=== PATIENT | male | born 1950 | race Caucasian/White ===

== ENCOUNTER → 2016-08-12 | Outpatient (CLI) | payer BC ==
[~2016-08-12] MED LIST: ACETTAB19 PO; ASPCH81X PO; LOSA1TAB PO; OMEG10007 PO; SIMV20TA2 PO
== END | disposition home or self-care (01) ==
LOC: C.LAB1850 07:58
PROVIDERS: ATTEND Internal Medicine
DX: Z00.00 Encounter for general adult medical examination without abnormal findings (principal); E03.9 Hypothyroidism, unspecified; Z11.59 Encounter for screening for other viral diseases

== ENCOUNTER → 2016-12-20 | Outpatient (CLI) | payer OTHER, MEDICARE ==
[2016-12-20 10:23] LABS: ESTIMATED AVERAGE GLUCOSE 126 mg/dl; HA1C FLAG Normal (Normal)
[2016-12-20 10:35] LABS: BLOOD UREA NITROGEN 21 mg/dl (7-18); BUN/CREATININE RATIO 21.4 (10-20); CALCIUM 8.8 mg/dl (8.5-10.1); CARBON DIOXIDE 25 mmol/L (21-32); CHLORIDE 107 mmol/L (98-107); CHOLESTEROL 146 mg/dl (0-200); CHOLESTEROL/HDL RATIO 2.9; GLUCOSE 114 mg/dl (70-99); HDL CHOLESTEROL 51 mg/dl; LDL CHOLESTEROL CALCULATED 74 mg/dl; POTASSIUM 4.3 mmol/L (3.5-5.1); PROSTATE SPECIFIC ANTIGEN 0.498 ng/ml (0.000-4.000); SODIUM 141 mmol/L (136-145); TRIGLYCERIDES 104 mg/dl (0-150); VERY LOW DENSITY LIPOPROT CALC 21 mg/dl
--- NOTE | 2016-12-24 08:52 | CODING QUERY MEDICAL NECESSITY ---
SUPPORTING DIAGNOSIS NEEDED Dr. Bridges, A supporting diagnosis is required for the test/procedure performed on this patient in order for us to be reimbursed by the patient's insurance. Please provide a supporting diagnosis for the following test/procedure listed below next to the test name along with your signature. *If there is no additional diagnosis for this patient that would support the following test/procedure please document that below next to the test/procedure. Test(s)/Procedure(s) that require a supporting diagnosis: * [id number] GLYCATED HEMOGLOBIN DIAGNOSIS: DATE OF SERVICE: 12/20/16 Provider Signature: Date: Thank you Nelson Allison [facility] Information Management Once completed, please kindly fax back to [phone] For questions please call [phone]
== END | disposition home or self-care (01) ==
LOC: C.LAB1850 07:59
PROVIDERS: ATTEND Internal Medicine
DX: R73.03 Prediabetes (principal); E03.9 Hypothyroidism, unspecified; E78.5 Hyperlipidemia, unspecified; Z12.5 Encounter for screening for malignant neoplasm of prostate; Z13.1 Encounter for screening for diabetes mellitus

== ENCOUNTER → 2017-04-13 | Outpatient (CLI) | payer OTHER, MEDICARE ==
[2017-04-13 10:19] LABS: BLOOD UREA NITROGEN 16 mg/dl (7-18); BUN/CREATININE RATIO 14.9 (10-20); CALCIUM 9.3 mg/dl (8.5-10.1); CARBON DIOXIDE 26 mmol/L (21-32); CHLORIDE 105 mmol/L (98-107); GLUCOSE 111 mg/dl (70-99); SODIUM 139 mmol/L (136-145)
== END | disposition home or self-care (01) ==
LOC: C.LAB1850 07:29
PROVIDERS: ATTEND Internal Medicine
DX: R73.03 Prediabetes (principal)

== ENCOUNTER → 2017-07-28 | Outpatient (CLI) | payer OTHER, MEDICARE ==
[2017-07-28 09:47] LABS: ALT/SGPT 22 U/L (12-78); AST/SGOT 12 U/L (15-37); BLOOD UREA NITROGEN 19 mg/dl (7-18); CALCIUM 8.9 mg/dl (8.5-10.1); CARBON DIOXIDE 27 mmol/L (21-32); CREATININE 1.14 mg/dl (0.60-1.40); GLUCOSE 108 mg/dl (70-99); POTASSIUM 4.1 mmol/L (3.5-5.1); SODIUM 136 mmol/L (136-145)
[2017-07-28 09:48] LABS: HEMOGLOBIN A1C 5.8 % (4.5-5.6)
[2017-07-28 09:58] LABS: CHOLESTEROL 171 mg/dl (0-200); LDL CHOLESTEROL CALCULATED 100 mg/dl
== END | disposition home or self-care (01) ==
LOC: C.LAB1850 07:46
PROVIDERS: ATTEND Internal Medicine
DX: E78.5 Hyperlipidemia, unspecified (principal); R73.03 Prediabetes; E03.9 Hypothyroidism, unspecified

== ENCOUNTER 2019-01-16 05:16 | Inpatient (IN) ==
--- NOTE | 2018-12-15 11:31 | Anesthesiology Consultation ---
Date of Service December 15, 2018 Assessment & Plan (1) Encounter for pre-operative examination: - No previous anesthesia records re: intubations Chart Review Chart Review: Acceptable Risk for Surgery and Patient seen in Pre Admission Testing Consults Requested medical (Dr. Bridges (12/18 @ 8:30)) Patient was seen by PCPs office on 12/18 for preoperative evaluation. Per note from this visit. "Estimated risk probability for perioperative AMLA is 0.16% which is low risk. From a general medical standpoint, patient is cleared for surgery." Teaching & Discussion Pre-Anesthesia Teaching/Discussion Notes: Instructed NPO after midnight before surgery, except medications with 15 cc of water. Medication instructions provided according to the PAT guidelines. History Surgery Operation Date: 01/16/19 09:00 Proposed Procedures p Left Total Knee Arthroplasty - Jaydon Victoria DO Height/Weight Height: 6 ft Weight: 139.8 kg Allergies Allergy/AdvReac Type Severity Reaction Status Date / Time No Known Drug Allergies Allergy Unknown . Verified 12/18/18 08:33 Medications Home Medications Medication Instructions Recorded Confirmed Last Taken aspirin [Aspirin Low Dose] 81 mg PO QAM 12/08/18 12/18/18 Unknown asxeamv-lfdfndftrfruf-xlsgyhkp 2 tab PO Q6H PRN 12/08/18 12/18/18 Unknown [Excedrin Extra Strength] fluticasone propionate 1 spray INTRANASAL QAM 12/08/18 12/18/18 Unknown levothyroxine 50 mcg PO QAM 12/08/18 12/18/18 Unknown loratadine 10 mg PO QAM 12/08/18 12/18/18 Unknown losartan 25 mg PO QAM 12/08/18 12/18/18 Unknown ranitidine HCl 150 mg PO HS 12/08/18 12/18/18 Unknown simvastatin 20 mg PO PM 12/08/18 12/18/18 Unknown diclofenac 1 % topical gel TOPICAL .APPLY SPARINGLY TO A gm 12/18/18 12/18/18 Unknown fluocinonide 0.05 % topical cream TOPICAL .APPLY SPARINGLY TO A #1 gm 12/18/18 12/18/18 Unknown hydrochlorothiazide 25 mg tablet 25 mg PO QAM #90 tab 12/18/18 12/18/18 Unknown Past Medical History Medical History Diverticulosis of colon (Acute) History of esophageal reflux (Resolved) Hyperlipidemia (Acute) Hypothyroidism (Acute) Pre-diabetes (Acute) Diplopia left eye Environmental allergies Osteoarthritis Exercise / Class Metabolic Activity II 4-5 Yardwork/Stairs/Walk up hill (Able to climb FOS. Denies CP or SOB. ) Past Family History Family History Mother No problems noted. Father No problems noted. Past Surgical History Surgical History History of mandibular surgery History of total right knee replacement Hx of thumb surgery LEFT Past Anesthesia History No Hx of Anesthesia Complications and No Family Hx of Anesthesia Complications History of PONV No Hx of Motion Sickness and History of PONV (No vomiting, has had mild nausea after surgery. ) Social History Smoking Status: Never smoker Do You Dip or Chew Tobacco: No Hx Alcohol Use: Yes Alcohol type: beer and wine alcohol intake frequency: holidays/special occasions only Hx Substance Use: No Review of Systems Patient denies chest pain, shortness of breath, dyspnea on exertion, cough, wheezing, palpitations. +Joint Pain (Knees, Back) +Acid Reflux (controlled with current medication) Physical Exam Vital Signs BP: 128/83 P: 72 R: 16 T: 97.7 SPO2: 95% on RA Constitutional + obese ENMT Mouth: + dental restorations Thyromental Distance: > or= 3.5 Finger Breadths (3.5) Mallampati Class: I Neck normal visual inspection and trachea midline; neck extension not limited Respiratory normal respiratory effort Auscultation: lungs clear to auscultation bilaterally Cardiovascular Rate/Rhythm: regular rate and regular rhythm Heart Sounds: no murmur Vessels: no carotid bruit Neurologic moves all extremities Psychiatric Orientation: alert and oriented x 3 Testing Laboratory Results 12/15/18 12:10 12/15/18 12:10 12/15/18 12/15/18 12/15/18 12:10 12:10 12:10 PT 10.2 INR 1.0 APTT 27.9 Hemoglobin A1c Urine Color Yellow Urine Appearance Clear Urine pH 7.0 Ur Specific [place] 1.013 Urine Protein Negative Urine Glucose (UA) Negative Urine Ketones Negative Urine Nitrite Negative Ur Leukocyte Esterase Negative Blood Type O Positive Antibody Screen NEGATIVE 12/15/18 12:10 PT INR APTT Hemoglobin A1c 6.1 H Urine Color Urine Appearance Urine pH Ur Specific [place] Urine Protein Urine Glucose (UA) Urine Ketones Urine Nitrite Ur Leukocyte Esterase Blood Type Antibody Screen 12/15/18 12:10 Urine Culture - Final Urine,Clean Catch No growth - less than 1,000 colonies/mL. Electrocardiogram Date: 12/15/18 Findings: + NSR @ (73) and + no change from (11/22/17) Normal sinus rhythm with sinus arrhythmia Chest X-Ray Date: 12/15/18 Findings: + NAD FINDINGS: PA and lateral chest radiographs are compared to study dated 11/22/2017. The cardiomediastinal silhouette is unremarkable noting atheroscle rotic calcification of the thoracic aorta. Chronic interstitial thickening is similar to previous. There is mild bibasilar scarring/atelectasis. No airspace consolidation or pleural effusion is identified. There is no pneumothorax. The bony thorax appears intact. Degenerative change is noted in the thoracic spine. IMPRESSION: No active disease in the chest.
--- NOTE | 2018-12-15 11:35 | PAT Medication Instructions ---
Medication Instructions Date of Service December 15, 2018 Home Medications aspirin [Aspirin Low Dose] 81 mg PO QAM toiegqi-gnmofstnsrqaw-ozalfizs [Excedrin Extra Strength] 2 tab PO Q6H NEEDED fluticasone propionate 1 spray INTRANASAL QAM hydrochlorothiazide 25 mg PO QAM levothyroxine 50 mcg PO QAM loratadine 10 mg PO QAM losartan 25 mg PO QAM ranitidine HCl 150 mg PO HS simvastatin 20 mg PO PM ASK your surgeon for instructions aspirin [Aspirin Low Dose] 81 mg PO QAM eocwiyy-hcuspszebkvuk-gmhzxraz [Excedrin Extra Strength] 2 tab PO Q6H NEEDED DO NOT take the morning of surgery fluticasone propionate 1 spray INTRANASAL QAM hydrochlorothiazide 25 mg PO QAM loratadine 10 mg PO QAM losartan 25 mg PO QAM Take morning of surgery With a small sip of water, OTHERWISE NOTHING TO EAT OR DRINK AFTER MIDNIGHT: levothyroxine 50 mcg PO QAM Take evening before surgery ranitidine HCl 150 mg PO HS simvastatin 20 mg PO PM Other Notes If you have any questions please call us at [phone] or [phone] or [phone] or [phone]
--- NOTE | 2018-12-15 12:37 | XRay Report ---
TWO VIEW CHEST CLINICAL HISTORY: Preoperative examination. FINDINGS: PA and lateral chest radiographs are compared to study dated 11/22/2017. The cardiomediastin al silhouette is unremarkable noting atherosclerotic calcification of the thoracic aorta. Chronic int erstitial thickening is similar to previous. There is mild bibasilar scarring/atelectasis. No airspac e consolidation or pleural effusion is identified. There is no pneumothorax. The bony thorax appears intact. Degenerative change is noted in the thoracic spine. IMPRESSION: No active disease in the chest. Electronically signed by: Mayur Mac M.D. 12/15/2018 12:35 PM
[2018-12-15 14:01] LABS: Basophils # (auto) 0.02 K/uL (0-0.2); Basophils % (auto) 0.3 %; Eosinophils # (auto) 0.26 K/uL (0-0.5); Eosinophils % (auto) 3.9 %; Hematocrit (blood only) 42.3 % (42-52); Hemoglobin 14.5 g/dL (14.0-18.0); Lymphocytes % (auto) 33.2 %; Mean Corpuscular Hgb Conc 34.3 g/dL (32-36); Mean Corpuscular Volume 86.3 fL (80-100); Mean Platelet Volume 10.7 fL (7.4-10.4); Monocytes # (auto) 0.58 K/uL (0.11-0.59); Monocytes % (auto) 8.8 %; Neutrophils # (auto) 3.56 K/uL (1.4-6.5); Neutrophils % (auto) 53.8 %; Platelet Count 226 K/uL (130-400); RDW Standard Deviation 44.1 fL (36.4-46.3); White Blood Count 6.62 K/uL (4.8-10.8)
[2018-12-15 14:05] LABS: Partial Thromboplastin Time 27.9 Seconds (21.0-31.0); Prothrombin Time 10.2 Seconds (9.0-12.0)
[2018-12-15 14:08] LABS: Albumin Level 3.7 gm/dl (3.4-5.0); BUN Creatinine Ratio 15.4 (10-20); Calcium 9.6 mg/dl (8.5-10.1); Creatinine Clr Calc Pharmacy 90.4 ml/min; Est GFR (African American) 75.9; Est GFR (Non-African American) 65.5; Potassium 4.1 mmol/L (3.5-5.1)
[2018-12-15 14:16] LABS: Estimated Average Glucose 128 mg/dl; Hemoglobin A1C 6.1 % (4.5-5.6)
[2018-12-15 14:21] LABS: Appearance Urine Clear (Clear); Bilirubin Urine Negative (Negative); Blood Urine Negative (Negative); Color Urine Yellow; Glucose Urine UA Negative (Negative); Ketones Urine Negative (Negative); Leukocyte Esterase Urine Negative (Negative); Nitrite Urine Negative (Negative); Protein Urine Negative (Negative); Specific Gravity Urine 1.013 (1.000-1.030); Urobilinogen Urine Negative (Negative)
--- NOTE | 2018-12-18 07:46 | History & Physical Report ---
Date of Service December 18, 2018 Date of Surgery: 01/16/19 Assessment & Plan (1) Osteoarthritis of left knee: Risks and benefits of procedure discussed in detail today, patient would like to proceed with a left total knee replacement at [facility] as scheduled. will obtain medical clearance prior to surgery as well as obtain PATs at [facility]. Will place on ASA 81mg po bid x 1 month post op, f/u 2 weeks post op for routine post-operative care and x-ray, sooner if having any problems. will make arrangements for HHPT at the time of discharge. At this point in time, has failed conservative measures and would like to proceed with surgical intervention. History of Present Illness Chief Complaint: left knee pain Primary Care Provider: Zach Bridges MD Mr Merino is a 68 year old male who complains of left knee pain, presents for pre-op eval prior to a left total knee replacement at [facility] on 01/16/19. he states the pain is chronic and no known injuries, pain is described as aching and dull, currently 3/10 worse is 7/10. he has tried PO NSAIDs including IBU and Aleve, has undergone prior cortisone injections as well as visco with minimal relief. pain is now affecting his activities of daily living including walking, standing and using stairs. he admits to decreased range of motions, stiffness, denies instability, but does have intermittent swelling. at this point in time has failed conservative measures and would like to proceed with a left total knee replacement. Allergies Allergy/AdvReac Type Severity Reaction Status Date / Time No Known Drug Allergies Allergy Unknown . Verified 12/08/18 15:07 Home Medications Home Medications Medication Instructions Recorded Confirmed Type aspirin [Aspirin Low Dose] 81 mg PO QAM 12/08/18 12/08/18 History wtjnzgk-qfxsfduavkxxd-tutswjxv 2 tab PO Q6H PRN 12/08/18 12/08/18 History [Excedrin Extra Strength] fluticasone propionate 1 spray INTRANASAL QAM 12/08/18 12/08/18 History hydrochlorothiazide 25 mg PO QAM 12/08/18 12/08/18 History levothyroxine 50 mcg PO QAM 12/08/18 12/08/18 History loratadine 10 mg PO QAM 12/08/18 12/08/18 History losartan 25 mg PO QAM 12/08/18 12/08/18 History ranitidine HCl 150 mg PO HS 12/08/18 12/08/18 History simvastatin 20 mg PO PM 12/08/18 12/08/18 History Past Med/Surg History Medical History Diverticulosis of colon (Acute) History of esophageal reflux (Resolved) Hyperlipidemia (Acute) Hypothyroidism (Acute) Pre-diabetes (Acute) Diplopia left eye Environmental allergies Osteoarthritis Surgical History History of mandibular surgery History of total right knee replacement Hx of thumb surgery LEFT Family History Mother No problems noted. Father No problems noted. Social History Preferred Language: Polish Communication Ability: Effective Beliefs That Will Affect Care: None Current Living Situation: Spouse Feels Safe at Home: Yes Safety Concerns: Feels Safe At This Time Smoking Status: Never smoker Do You Dip or Chew Tobacco: No Second Hand Exposure: Yes ( CHILD, CURRENTLY NO) Hx Alcohol Use: Yes Alcohol type: beer and wine Hx Substance Use: No Review of Systems Review of Systems: All systems reviewed & are unremarkable except as noted in HPI & below Constitutional: no fever, no chills and no sweats Respiratory: no cough and no dyspnea Cardiovascular: no chest pain, no dyspnea and no orthopnea Gastrointestinal: no abdominal pain, no nausea and no vomiting Musculoskeletal: as per Subjective / HPI Physical Exam Physical Exam: Ht: 6ft Wt: 139.8kg BP: 128/72 Pulse: 84 Constitutional: WD/WN, vitals as above no acute distress Respiratory: normal respiratory effort, lungs clear to auscultation no respiratory distress and no labored breathing Cardiovascular: RRR, no murmur, no edema Gastrointestinal (Abdomen): normal bowel sounds, soft, nontender, no hepatosplenomegaly Musculoskeletal: Left Knee Physical Exam ambulates with a limp, there is no erythema, warmth, ecchymosis or atrophy noted, +1 effusion, greatest tenderness over the medial joint line and anterior knee joint. negative patellar apprehension , mild crepitation with motion, rigo's negative, posterior drawer negative. positive mcmurrays medially, negative anterior drawer, knee stable with valgus/varus stress. no extensor lag. pain with active range of motion, AROM 0/5/110, Passive ROM 0/5/115. No pain with active/passive ROM of ankle. Lower Extremity Strength normal. Lower Extremity Neuro-vascular is normal Results & Data Diagnostic Findings Left Knee X-ray 10/02/18 confirms advanced degenerative changes to the left knee with varus alignment, narrowing greatest medial compartment and patellofemoral joint, findings consistent with joint space narrowing, osteophyte formation and subchondral sclerosis. no acute bony pathology noted.
[2019-01-16] MEDS ORDERED: ROPIVACAINE 0.5% HCL/PF 150 MG, BUPIVACAINE 0.5% MPF 30 ML, EPINEPHrine 30MG/30ML (OR U... INSTIL SCH (06:00)
[2019-01-16] MEDS ORDERED: dexAMETHasone 4 MG TAB PO SCH (06:00)
[2019-01-16] MEDS ORDERED: LR 500ML BOLUS, THEN 15ML/HR IV SCH (06:00)
[2019-01-16] MEDS ORDERED: GABAPENTIN 900 MG DOSE PO SCH (06:00)
[2019-01-16] MEDS ORDERED: TRANEXAMIC ACID 1,000 MG x 1 **For Topical Use TOP SCH (06:00)
[2019-01-16] MEDS ORDERED: ACETAMINOPHEN 500 MG TAB PO SCH (06:00)
[2019-01-16] MEDS ORDERED: TRANEXAMIC ACID 1,000 MG **IV Pre-op IV SCH (06:00)
[2019-01-16] MEDS ORDERED: FAMOTIDINE 20 MG TAB PO SCH (06:00)
[2019-01-16] MEDS ORDERED: CeleBREX 200 MG CAP PO SCH (06:00)
[2019-01-16] MEDS ORDERED: CEFAZOLIN 2000MG 2,000 MG/15 ML SYR IV SCH (06:00)
[2019-01-16] MEDS ORDERED: LR 15ML/HR IV SCH (06:00)
[2019-01-16] MEDS ORDERED: CEFAZOLIN 3000MG 72.5 ML IV SCH (06:00)
[2019-01-16] MEDS ORDERED: LR 60ML/HR IV SCH (06:00)
[2019-01-16] MEDS ORDERED: ROPIVACAINE 0.5% 5 MG/ML 30 ML VIAL ONE (06:26)
[2019-01-16] MEDS ORDERED: BUPIVACAINE 0.5 % 5 MG/1 ML PF 10ML VIAL ONE (06:26)
[2019-01-16] MEDS ORDERED: TRANEXAMIC ACID 1,000 MG **IV Intra-op IV SCH (06:30)
[2019-01-16] MEDS ORDERED: fentaNYL citrate 100 MCG/2 ML VIAL ONE (06:35)
[2019-01-16] MEDS ORDERED: PROPOFOL IV EMULSION 10 MG/ML 20 ML VIAL IV ONE ×2 (06:35→08:33)
[2019-01-16] MEDS ORDERED: LIDOCAINE HCL 2% 2 ML VIAL/AMP(20MG/ML) INFIL ONE (06:35)
[2019-01-16] MEDS ORDERED: MIDAZOLAM HCL 1 MG/ML 2ML VIAL ONE ×2 (06:35→07:47)
[2019-01-16] MEDS ORDERED: BACITRACIN INJ 50,000 UNIT VIAL ONE (06:58)
[2019-01-16] MEDS ORDERED: ORTHO JOINT ANESTHETIC ONE (06:58)
--- NOTE | 2019-01-16 06:59 | History & Physical Bridge Note ---
Date of Service January 16, 2019 History & Physical Bridge Note I have examined the patient, reviewed the History & Physical and in the interval since the performance of the History & Physical I have noted the following changes of clinical significance: no changes noted
[2019-01-16] MEDS ORDERED: ePHEDrine sulfate 50 MG/ML AMP IV PRN (07:57)
[2019-01-16] MEDS ORDERED: ATROPINE SULFATE 0.1 MG/ML 10ML SYR IV PRN (07:57)
[2019-01-16] MEDS ORDERED: fentaNYL citrate 100 MCG/2 ML VIAL IV PRN (07:57)
[2019-01-16] MEDS ORDERED: ONDANSETRON INJ 2 MG/ML 2 ML VIAL IV PRN ×2 (07:57→10:30)
--- NOTE | 2019-01-16 08:28 | Operative Report ---
Post Operative Report Pre & Post Diagnosis Operation Date: 01/16/19 07:15 Pre-Op Diagnosis: Left Knee Osteoarthritis Post-Op Diagnosis: Left Knee Osteoarthritis Procedure Operation Date: 01/16/19 07:15 Actual Procedures p Left Total Knee Arthroplasty(Left) utilizing [employer] journey 2 patient matched total knee arthroplasty size 8 femur 6 tibia with a 20 mm stem by 111 polyethylene oval patella- Jaydon Victoria DO Surgeon Jaydon Victoria DO Scientific Diver Eran ROQUE Estimated Blood Loss 5 Findings Consistent with Post-Op Diagnosis Patient resents with severe end-stage DJD varus alignment left knee no response to conservative management times surgery patient noted evidence of subchondral sclerosis bone loss of the medial tibial large osteophytes marginal osteophytes of the femur as well varus alignment with a flexion contracture of 10 degrees patient is failed attempted conservative management presents today for a left total knee arthroplasty Specimens Bone cartilage Drains Medium bore Hemovac Complications none Disposition Accompanied Patient To Recovery: No Disposition: Recovery Room Indications Patient presents as a 68-year-old male with severe end-stage DJD varus alignment left knee presents for left total knee arthroplasty after failing attempts at conservative management the above findings were noted patient is failed attempts at conservative management including bracing anti-inflammatories relative rest activity modification corticosteroid injection Visco supplementation. Description of Procedure After proper prepping and draping of the left lower extremity anterior midline incision was made over the region of the extensor extensor mechanism after meticulous hemostasis was obtained and maintained in subcutaneous tissues a medial parapatellar incision was made The patella was subluxed lateralward the medial lateral gutter were cleaned from any hypertrophic synovitis and scar tissue of the distal femoral block was placed and the distal femoral osteotomy cut was made subsequently the chamfers anterior and posterior osteotomy cuts were made utilizing the 4-in-1 block the tibia was subsequently subluxed anteriorward medial and ateral meniscal remnants were excised in their entirety remnants of the anterior and posterior cruciate ligaments were excised in their entirety excellent exposure of the proximal tibia was obtained the tibial osteotomy guide was placed on the proximal tibial osteotomy cut was made once again the knee was irrigated with copious amounts of sterile saline solution the patella was subsequently everted lateralward thickened scar tissue around the patella was removed the patella was subsequently cut utilizing a freehand technique and was drilled prepared for final preparation and placement of patella socially flexion-extension gaps were checked and the equal and symmetric trials were placed to the appropriate femoral and tibial trials with poly-spacer being placed for equal flexion and extension gaps and full range of motion including extension to 0 and flexion to 140 the trial components after having been taken to recovery range of motion was subsequently removed meticulous hemostasis was obtained and maintained subsequently a knee block injection of joint cocktail including ropivacaine 0.5% 150 mg. Bupivacaine 0.5% epinephrine 1-200,030 mL's toradol 30 mg dexamethasone 4 mg ketamine 10 mg clonidine 100 micrograms normal saline solution 30 mg was infiltrated into the soft tissues of the posterior knee medial lateral gutters and periosteal synovium special attention was paid to protect neurovascular structures at all times subsequently trial components having been removed the knee was irrigated with sterile saline solution. debris was removed the proximal tibia was subsequently prepared and was made ready for the placement of the tibial component tibial component was also cemented and tamped into position the femoral component was subsequently placed and cemented in the position the patellar component was subsequently cemented in position because hemostasis once again obtained and maintained wound having been thoroughly irrigated with debridement and debridement lavage was performed as well as a medial parapatellar incision closed with #1 Vicryl in interrupted fashion subcutaneous was closed with #2 Vicryl skin was closed with skin clips. PA-C was necessary for prepping and drapping as well as wound closure of deep fascia Sub cutaneous tissue and skin and was necessary for the case. A sterile compressive dressing was placed patient was taken to recovery in stable condition of report dictated by Julien I attest to the content of the Intraoperative Record and any orders documented therein. Any exceptions are noted below. I attest to the content of the Intraoperative Record and any orders documented therein. Any exceptions are noted below.
--- NOTE | 2019-01-16 09:46 | Anesthesiology Progress Note ---
Date of Service January 16, 2019 Anesthesia Post Procedure Vital Signs Vital Signs: Temp Pulse Pulse Resp BP Pulse Ox 01/16/19 09:35 82 15 126/80 94 01/16/19 09:25 82 15 129/78 100 01/16/19 09:16 36.5 C 84 16 129/75 99 01/16/19 06:02 37.2 C 84 20 129/84 94 Pain Intensity Back: Pain Intensity: 1 Left Knee: Pain Intensity: 0 Transfer of Care Handoff Completed per policy Notes Mental Status: alert / awake / arousable Patient Amnestic to Procedure: Yes Nausea / Vomiting: adequately controlled Pain: adequately controlled Airway Patency, RR, SpO2: stable & adequate BP & HR: stable & adequate Hydration State: stable & adequate Neuraxial Anesthesia: was administered and sensory block is resolving Anesthetic Complications: no major complications apparent and Pt Satisfied with anesthetic care
--- NOTE | 2019-01-16 10:02 | XRay Report ---
LEFT KNEE 2 VIEWS History: Left total knee arthroplasty. Degenerative arthritis. Postop. FINDINGS: The patient is status post a left total knee arthroplasty. The hardware is intact. No fract ure or dislocation. Surgical drains are in place. IMPRESSION: Left total knee arthroplasty. No evidence for hardware complication. Electronically signed by: Jem Lawrence M.D. 01/16/2019 10:01 AM
[2019-01-16] MEDS ORDERED: NALOXONE HCL 0.4 MG/1 ML VIAL/CARP IV PRN (10:30)
[2019-01-16] MEDS ORDERED: HYDROmorphone INJ 1 MG/ML SYRINGE IV PRN (10:30)
[2019-01-16] MEDS ORDERED: METOCLOPRAMIDE HCL INJ 5 MG/ML 2 ML VIAL IV PRN (10:30)
[2019-01-16] MEDS ORDERED: BISACODYL 10 MG SUPP PR PRN (10:30)
[2019-01-16] MEDS ORDERED: ALUMINUM/MAGNESIUM SUSP 30 ML UDC PO PRN (10:30)
[2019-01-16] MEDS ORDERED: MAGNESIUM HYDROXIDE SUSP 30 ML UDC PO PRN (10:30)
[2019-01-16] MEDS: SODIUM CHLORIDE 0.9% 1000ML 1,000 ML IV SCH ×2 (10:55→20:25)
[2019-01-16] MEDS: KETOROLAC TROMETHAMINE 15 MG/ML VIAL IV SCH ×3 (10:56→22:16)
[2019-01-16] MEDS: ACETAMINOPHEN 500 MG TAB PO SCH ×2 (14:07→21:28)
[2019-01-16] MEDS: CEFAZOLIN 2000MG 2,000 MG/15 ML SYR IV SCH ×2 (14:12→22:16)
[2019-01-16] MEDS: OXYCODONE HCL IR 5 MG TAB (IMMEDIATE RELEASE) PO PRN ×2 (15:56→20:10)
[2019-01-16] MEDS: SENNA 8.6 MG TAB PO SCH (20:12)
[2019-01-16] MEDS: DOCUSATE SODIUM 100 MG CAP PO SCH (20:12)
[2019-01-16] MEDS: ASPIRIN 81 MG ECTAB PO SCH (20:12)
[2019-01-16] MEDS: SIMVASTATIN 20 MG TAB PO SCH (20:12)
[2019-01-17] MEDS: OXYCODONE HCL IR 5 MG TAB (IMMEDIATE RELEASE) PO PRN ×4 (00:26→19:54)
[2019-01-17] MEDS: ACETAMINOPHEN 500 MG TAB PO SCH ×3 (05:07→22:02)
[2019-01-17] MEDS: KETOROLAC TROMETHAMINE 15 MG/ML VIAL IV SCH (05:07)
[2019-01-17] MEDS: LEVOTHYROXINE SODIUM 50 MCG TABLET PO SCH (05:08)
[2019-01-17 06:50] LABS: Hematocrit (blood only) 35.6 % (42-52); Hemoglobin 12.2 g/dL (14.0-18.0); Mean Corpuscular Hgb Conc 34.3 g/dL (32-36); Mean Corpuscular Volume 84.8 fL (80-100); Mean Platelet Volume 10.3 fL (7.4-10.4); Platelet Count 189 K/uL (130-400); RDW Coefficient of Variation 13.9 % (11.5-14.5); RDW Standard Deviation 42.9 fL (36.4-46.3); White Blood Count 11.78 K/uL (4.8-10.8)
[2019-01-17 07:25] LABS: BUN Creatinine Ratio 20.5 (10-20); Calcium 8.3 mg/dl (8.5-10.1); Creatinine Clr Calc Pharmacy 99.7 ml/min; Est GFR (African American) 85.7; Est GFR (Non-African American) 73.9; Potassium 4.1 mmol/L (3.5-5.1)
--- NOTE | 2019-01-17 08:18 | Anesthesiology Progress Note ---
Date of Service January 17, 2019 Anesthesia Post Procedure Vital Signs Vital Signs: Temp Pulse Pulse Pulse Resp BP Pulse Ox 01/17/19 07:04 36.5 C 73 18 116/71 100 01/17/19 03:50 36.5 C 73 18 119/73 93 01/16/19 23:04 36.6 C 80 17 130/75 93 01/16/19 19:24 36.4 C L 82 18 127/81 95 01/16/19 15:45 36.6 C 76 17 144/83 H 94 01/16/19 13:20 92 H 18 125/71 94 01/16/19 12:06 80 95 H 130/78 94 01/16/19 11:15 36.6 C 80 16 144/91 H 95 01/16/19 10:48 79 16 135/84 93 01/16/19 10:15 36.6 C 80 16 131/81 94 01/16/19 09:55 78 16 137/82 93 01/16/19 09:45 37.1 C 79 15 138/82 93 01/16/19 09:35 82 15 126/80 94 01/16/19 09:25 82 15 129/78 100 01/16/19 09:16 36.5 C 84 16 129/75 99 Pain Intensity Back: Pain Intensity: 1 Left Knee: Pain Intensity: 4 Notes Mental Status: alert / awake / arousable and participated in evaluation Patient Amnestic to Procedure: Yes Nausea / Vomiting: adequately controlled Pain: adequately controlled Airway Patency, RR, SpO2: stable & adequate BP & HR: stable & adequate Hydration State: stable & adequate Neuraxial Anesthesia: was administered and sensory block resolved Anesthetic Complications: no major complications apparent and Pt Satisfied with anesthetic care
[2019-01-17] MEDS: LORATADINE 10 MG TAB PO SCH (09:07)
[2019-01-17] MEDS: ASPIRIN 81 MG ECTAB PO SCH ×2 (09:08→20:02)
[2019-01-17] MEDS: DOCUSATE SODIUM 100 MG CAP PO SCH ×2 (09:08→20:02)
[2019-01-17] MEDS: MULTIVITAMIN TAB PO SCH (09:08)
[2019-01-17] MEDS: FLUTICASONE PROPIONATE NA SPR 16 GM BTL NAE SCH (09:08)
[2019-01-17] MEDS: LOSARTAN POTASSIUM 25 MG TAB PO SCH (09:09)
--- NOTE | 2019-01-17 09:52 | Orthopedic Progress Note ---
Date of Service January 17, 2019 Assessment & Plan (1) Osteoarthritis of left knee: POD #1, Left TKA PT/ OT DVT proph- ASA D/C planning- Home w HH Subjective POD #1, doing well, no c/o's. Denies SOB, CP, N/V. Pain controlled well. Physical Exam Physical Exam: Left knee dressings c/d/i, no drainage, toes/ ankle mobile, no calf tenderness. A&Ox3. Results & Data Vital Signs (Past 12 Hours) Vital Signs Temp Pulse Resp BP Pulse Ox 01/17/19 07:04 36.5 C 73 18 116/71 100 01/17/19 03:50 36.5 C 73 18 119/73 93 01/16/19 23:04 36.6 C 80 17 130/75 93
[2019-01-17] MEDS: SENNA 8.6 MG TAB PO SCH (20:02)
[2019-01-17] MEDS: CeleBREX 200 MG CAP PO SCH (20:02)
[2019-01-17] MEDS: SIMVASTATIN 20 MG TAB PO SCH (20:03)
[2019-01-18] MEDS: OXYCODONE HCL IR 5 MG TAB (IMMEDIATE RELEASE) PO PRN ×3 (00:10→08:07)
[2019-01-18] MEDS: ACETAMINOPHEN 500 MG TAB PO SCH (06:56)
[2019-01-18] MEDS: LEVOTHYROXINE SODIUM 50 MCG TABLET PO SCH (06:57)
--- NOTE | 2019-01-18 07:36 | Orthopedic Progress Note ---
Date of Service January 18, 2019 Assessment & Plan (1) Osteoarthritis of left knee: POD #2, Left TKA PT/ OT DVT proph- ASA D/C planning- Home w HH, after PT today Subjective POD #2, doing well, no c/o's. Denies SOB, CP, N/V. Pain controlled well. Review of Systems Review of Systems: All systems reviewed & are unremarkable except as noted in HPI & below Constitutional: no fever, no chills and no sweats Physical Exam Physical Exam: Vital Signs Temp Pulse Resp BP Pulse Ox 01/18/19 07:04 36.3 C L 88 18 118/73 100 01/17/19 23:33 36.5 C 82 18 126/76 96 01/17/19 15:46 36.5 C 88 17 118/70 99 01/17/19 10:55 36.7 C 83 18 118/68 95 Intake and Output 01/17/19 01/18/19 01/18/19 22:59 06:59 14:59 Intake Total 750 / 1100 350 / 1100 Output Total 75 / 325 50 / 325 Balance 675 / 775 300 / 775 Intake: Oral 750 / 1100 350 / 1100 Output: Drain Output 75 / 325 50 / 325 Left Knee 75 / 325 50 / 325 Other: # Unmeasured Voi ds 1 Constitutional: WD/WN, vitals as above no acute distress Musculoskeletal: left knee: NVDI, calf SNT, negative ivan sign. DP palpable, able to wiggle toes/ankle movement without difficulty. ES dressing clean dry and intact. expected post-operative bruising noted. Results & Data Vital Signs (Past 12 Hours) Vital Signs Temp Pulse Resp BP Pulse Ox 01/18/19 07:04 36.3 C L 88 18 118/73 100 01/17/19 23:33 36.5 C 82 18 126/76 96 Laboratory Results PT 10.2 Seconds (9.0-12.0) 12/15/18 12:10 APTT 27.9 Seconds (21.0-31.0) 12/15/18 12:10 Diagnostic Findings LEFT KNEE 2 VIEWS History: Left total knee arthroplasty. Degenerative arthritis. Postop. FINDINGS: The patient is status post a left total knee arthroplasty. The hardware is intact. No fracture or dislocation. Surgical drains are in place. IMPRESSION: Left total knee arthroplasty. No evidence for hardware complication.
--- NOTE | 2019-01-18 07:48 | Discharge Summary ---
Date of Service date of discharge: January 18, 2019 date of admssion: January 16, 2019 Admission HPI Per Admitting Provider Mr Merino is a 68 year old male who complains of left knee pain, presents for pre-op eval prior to a left total knee replacement at [facility] on 01/16/19. he states the pain is chronic and no known injuries, pain is described as aching and dull, currently 3/10 worse is 7/10. he has tried PO NSAIDs including IBU and Aleve, has undergone prior cortisone injections as well as visco with minimal relief. pain is now affecting his activities of daily living including walking, standing and using stairs. he admits to decreased range of motions, stiffness, denies instability, but does have intermittent swelling. at this point in time has failed conservative measures and would like to proceed with a left total knee replacement. Principal Diagnosis left knee osteoarthritis Discharge Exam Vital Signs Temp Pulse Resp BP Pulse Ox 01/18/19 07:04 36.3 C L 88 18 118/73 100 01/17/19 23:33 36.5 C 82 18 126/76 96 01/17/19 15:46 36.5 C 88 17 118/70 99 01/17/19 10:55 36.7 C 83 18 118/68 95 Intake and Output 01/17/19 01/18/19 01/18/19 22:59 06:59 14:59 Intake Total 750 / 1100 350 / 1100 Output Total 75 / 325 50 / 325 Balance 675 / 775 300 / 775 Intake: Oral 750 / 1100 350 / 1100 Output: Drain Output 75 / 325 50 / 325 Left Knee 75 / 325 50 / 325 Other: # Unmeasured Voids 1 Constitutional WD/WN, vitals as above no acute distress Musculoskeletal left knee: NVDI, calf SNT, negative ivan sign. DP palpable, able to wiggle toes/ankle movement without difficulty. ES dressing clean dry and intact. expected post-operative bruising noted. Discharge Data Allergies Allergy/AdvReac Type Severity Reaction Status Date / Time No Known Drug Allergies Allergy Unknown . Verified 01/16/19 05:45 Consultations 01/16/19 10:30 Consult Case Management - Discharge Planning Routine Procedures Performed Operation Date: 01/16/19 07:15 Actual Procedures p Left Total Knee Arthroplasty(Left) - Jaydon Victoria DO Ordered Studies 01/16/19 05:00 US - OR guided needle placemen Routine Hospital Course (1) Osteoarthritis of left knee: POD #2, Left TKA PT/ OT DVT proph- ASA D/C planning- Home w HH, after PT today Patient was a same day admission after undergoing a successful left TKA, they tolerated the procedure well. Post-operatively, their activity was progressed and well tolerated. Please refer to daily progress notes and PT notes for complete details. After exam on 01/18/19, patient felt to be stable for discharge home with HHPT. Patient will f/u in the office in 2 weeks for further evaluation including x-rays and incision check, sooner if having any issues or concerns. Below are pertinent labs/studies during their hospital stay: Laboratory Results WBC 11.78 K/uL (4.8-10.8) H 01/17/19 06:38 RBC 4.20 M/uL (4.7-6.1) L 01/17/19 06:38 Hgb 12.2 g/dL (14.0-18.0) L 01/17/19 06:38 Hct 35.6 % (42-52) L 01/17/19 06:38 MCV 84.8 fL (80-100) 01/17/19 06:38 MCH 29.0 pg (25-34) 01/17/19 06:38 MCHC 34.3 g/dL (32-36) 01/17/19 06:38 RDW Std Deviation 42.9 fL (36.4-46.3) 01/17/19 06:38 RDW Coeff of John 13.9 % (11.5-14.5) 01/17/19 06:38 Plt Count 189 K/uL (130-400) 01/17/19 06:38 MPV 10.3 fL (7.4-10.4) 01/17/19 06:38 Immature Gran % (Auto) 0.0 % 12/15/18 12:10 Neut % (Auto) 53.8 % 12/15/18 12:10 Lymph % (Auto) 33.2 % 12/15/18 12:10 [place] % (Auto) 8.8 % 12/15/18 12:10 Eos % (Auto) 3.9 % 12/15/18 12:10 Baso % (Auto) 0.3 % 12/15/18 12:10 Immature Gran # (Auto) 0.00 K/uL (0.00-0.02) 12/15/18 12:10 Neut # (Auto) 3.56 K/uL (1.4-6.5) 12/15/18 12:10 Lymph # (Auto) 2.20 K/uL (1.2-3.4) 12/15/18 12:10 [place] # (Auto) 0.58 K/uL (0.11-0.59) 12/15/18 12:10 Eos # (Auto) 0.26 K/uL (0-0.5) 12/15/18 12:10 Baso # (Auto) 0.02 K/uL (0-0.2) 12/15/18 12:10 PT 10.2 Seconds (9.0-12.0) 12/15/18 12:10 INR 1.0 (0.9-1.1) 12/15/18 12:10 APTT 27.9 Seconds (21.0-31.0) 12/15/18 12:10 PTT Ratio 1.0 12/15/18 12:10 Sodium 137 mmol/L (136-145) 01/17/19 06:38 Potassium 4.1 mmol/L (3.5-5.1) 01/17/19 06:38 Chloride 105 mmol/L (98-107) 01/17/19 06:38 Carbon Dioxide 27 mmol/L (21-32) 01/17/19 06:38 Anion Gap 5.0 (3-11) 01/17/19 06:38 BUN 21 mg/dl (7-18) H 01/17/19 06:38 Creatinine 1.04 mg/dl (0.6-1.4) 01/17/19 06:38 Est Cr Clr Drug Dosing 99.7 ml/min 01/17/19 06:38 Est GFR ( Amer) 85.7 01/17/19 06:38 Est GFR (Non-Af Amer) 73.9 01/17/19 06:38 BUN/Creatinine Ratio 20.5 (10-20) H 01/17/19 06:38 Glucose 141 mg/dl (70-99) H 01/17/19 06:38 POC Glucose 138 (70-99) H 01/16/19 09:28 Estimat Average Glucose 128 mg/dl 12/15/18 12:10 Hemoglobin A1c 6.1 % (4.5-5.6) H 12/15/18 12:10 Calcium 8.3 mg/dl (8.5-10.1) L 01/17/19 06:38 Albumin 3.7 gm/dl (3.4-5.0) 12/15/18 12:10 Specimen Hemolysis 01/17/19 06:38 Urine Color Yellow 12/15/18 12:10 Urine Appearance Clear (Clear) 12/15/18 12:10 Urine pH 7.0 (4.5-7.5) 12/15/18 12:10 Ur Specific [place] 1.013 (1.000-1.030) 12/15/18 12:10 Urine Protein Negative (Negative) 12/15/18 12:10 Urine Glucose (UA) Negative (Negative) 12/15/18 12:10 Urine Ketones Negative (Negative) 12/15/18 12:10 Urine Blood Negative (Negative) 12/15/18 12:10 Urine Nitrite Negative (Negative) 12/15/18 12:10 Urine Bilirubin Negative (Negative) 12/15/18 12:10 Urine Urobilinogen Negative (Negative) 12/15/18 12:10 Ur Leukocyte Esterase Negative (Negative) 12/15/18 12:10 Blood Type O Positive 12/15/18 12:10 Antibody Screen NEGATIVE 12/15/18 12:10 Total Time Total Time Spent Total Time Spent (In Minutes): 20 Total Time Includes: Examination of the Patient, Discharge Planning and Medication Reconciliation Discharge Plan Discharge Items Patient Disposition: Home - Home Health Services Reason For Visit: Left Knee Osteoarthritis Discharge Diagnosis: left total knee replacement Condition: Good Discharge Goals: Decrease discomfort, Improve function and Increase independence Activity: Per 'Additional Instructions' section Non-emergency contact: Primary Care Provider and Surgeon Call non-emergency contact if: you have any medication questions, your temperature is above 101.5, your wound has increased redness, your wound has increased drainage and your wound pain has increased Follow-up/Referrals: Zach Bridges MD [Primary Care Provider] - Diet: Regular Addtl Provider Instructions: ACTIVITY RECOMMENDATIONS: SELF CARE INSTRUCTIONS AFTER TOTAL KNEE REPLACEMENT A. You may need to continue a physical therapy program after discharge from the hospital. There are several options available to you. Your doctor will assist you in selecting the best one for you. 1. An out-patient facility 2 to 3 times a week for therapy or home therapy. 2. Continue working on all exercises taught to you in the hospital. Your goals should be to increase bending of your knee to 90 degrees and beyond and to fully straighten your knee. B. You may progress at your own pace from walking with a walker or crutches to a cane; then to no assistive devices. C. Make walking a part of your daily routine. Be up as much as comfortable with rest periods throughout the day. Rest with leg elevation is very important. Use the ice wrap frequently for the first 3-4 weeks. D. There are no restrictions on activities. You may ride in a car, shop, parti cipate in sales producer and all social activities. E. Wear the long elastic stockings (TODD hose) 20 hours a day for 2 weeks after surgery. They can be removed several times a day for laundering and for a bath. F. You may shower, no tub baths until cleared by your doctor. SPECIAL CARE INSTRUCTIONS: VERY IMPORTANT TO READ AND REVIEW A. There are a few signs you need to watch for after you are home. Call [facility] if you notice any of the followin. Increased severe knee pain. Some pain is expected especially when you exercise. 2. Increased swelling in your leg or knee; pain or swelling of the calf muscle in either lower leg. 3. Any fluid drainage from the incision. 4. Shortness of breath or chest pain. B. Please call [facility] at if you have any concerns or questions about your operation or recovery. The doctor or his nurse will return your call promptly. C. You must take antibiotics before dental work, bladder, bowel or other surgery. Your doctor will provide you with a permanent care to carry describing th is precaution. IMPORTANT: * REMEMBER TO TAKE ASPIRIN, 81 MG, TWICE DAILY FOR 4 WEEKS UNLESS OTHERWISE DIRECTED. THIS IS YOUR BLOOD THINNER. * HIGH RISK PATIENTS MAY BE PRESCRIBED A STRONGER BLOOD THINNER. THIS WILL BE PROVIDED AT DISCHARGE. * CALL IF INCREASED PAIN, REDNESS, DRAINAGE OR FEVER GREATER THAT 101. * WEAR TODD HOSE 20 HOURS PER DAY FOR 2 WEEKS. * ES Dressing- This is a large suction dressing covering your incision. This will help pull any excess drainage from the wound and allow your incision to heal properly. You may shower with this if you can keep the unit outside of the shower. If any bleeding or leakage is noted please call your doctor's office. This will remain on your incision for 7 days and then should be shan nena. This can be done yourself or by the home nursing staff if applicable. The entire unit is disposable once removed. Once removed, keep incision clean and dry. If redness or drainage is noted, please call your surgeon. ONCE ES IS REMOVED, FOLLOW THESE INSTRUCTIONS: DERMABOND Prineo- This is a mesh tape dressing that is covered with glue. It should remain in place until the incision is properly healed, usually 10-14 days. This dressing is designed to naturally slough off. You may trim the excess mesh tape as it peels off. Incision may be briefly wet in a shower. Dry immediately by blotting with a clean, dry towel. Do not bath or swim until instructed by your doctor. Do not scratch, rub, or pick at the dressing. Do not apply any topical ointments or lotions until dressing is completely removed and/or instructed by your doctor. There may be a small piece of suture material at one end of your incision. Do not pull or trim this. If it is bothersome or catching on clothing, you may cover it with a band-aid. IF INCISION IS LEAKING THROUGH DRESSING, CALL THE OFFICE . FOLLOW UP VISIT: If appointment is not already scheduled: Please call [facility] to make a follow-up appointment for 2 weeks after your surgery at . Prescriptions: New acetaminophen [Tylenol Extra Strength] 500 mg Tablet 1,000 mg PO Q8 14 Days Qty: 84 RF: 0 aspirin [Ecotrin Low Strength] 81 mg Tablet,Delayed Release (Dr/Ec) 81 mg PO BID 30 Days Qty: 60 RF: 0 celecoxib [Celebrex] 200 mg Capsule 200 mg PO BID 30 Days Qty: 60 RF: 0 oxycodone 5 mg Tablet 5 mg PO Q4H PRN (Reason: pain) Qty: 30 RF: 0 docusate sodium 100 mg Capsule 100 mg PO BID 10 Days Qty: 20 RF: 0 cefadroxil 500 mg capsule 500 mg PO BID 10 Days Qty: 20 RF: 0 Continued hydrochlorothiazide 12.5 mg capsule 12.5 mg PO DAILY RF: 0 simvastatin 20 mg tablet 20 mg PO PM Qty: 30 RF: 6 fluocinonide 0.05 % cream 1 applic topical DAILY PRN (Reason: Dry Skin) Qty: 1 RF: 0 diclofenac sodium [Voltaren] 1 % gel 1 % topical DAILY PRN (Reason: Pain) RF: 0 levothyroxine 50 mcg Tablet 50 mcg PO QAM RF: 0 ranitidine HCl 150 mg Tablet 150 mg PO HS RF: 0 losartan 25 mg Tablet 25 mg PO QAM RF: 0 fluticasone propionate 50 mcg/actuation [place],Suspension 1 spray INTRANASAL QAM RF: 0 loratadine 10 mg Tablet 10 mg PO QAM RF: 0 multivitamin Tablet 1 tab PO DAILY RF: 0 Discontinued Excedrin Extra Strength 250-250-65 mg Tablet 1 tab PO Q6H PRN (Reason: Pain) RF: 0 aspirin [Aspirin Low Dose] 81 mg Tablet,Delayed Release (Dr/Ec) 81 mg PO QAM RF: 0 Stand-Alone Forms: [facility]/Other Patient Handouts: Prediabetes, Diabetes Meal Planning Discharge Orders: Discharge Order (Routine); Ordered 01/18/19 Ordered By: Eran Prakash Admission Data Admit Date/Time: 01/16/19 09:21 Attending Provider: Jaydon Victoria Admit Provider: Jaydon Victoria Primary Care Provider: Zach Bridges Service: Surgical Services Other Pending Studies at Discharge: No
[2019-01-18] MEDS: FLUTICASONE PROPIONATE NA SPR 16 GM BTL NAE SCH (08:08)
[2019-01-18] MEDS: DOCUSATE SODIUM 100 MG CAP PO SCH (08:08)
[2019-01-18] MEDS: ASPIRIN 81 MG ECTAB PO SCH (08:09)
[2019-01-18] MEDS: CeleBREX 200 MG CAP PO SCH (08:09)
[2019-01-18] MEDS: LOSARTAN POTASSIUM 25 MG TAB PO SCH (08:09)
[2019-01-18] MEDS: LORATADINE 10 MG TAB PO SCH (08:09)
[2019-01-18] MEDS: MULTIVITAMIN TAB PO SCH (08:09)
== END 2019-01-18 10:02 | disposition home health service (06) | DRG 470 ==
LOC: ASU 05:16 → 3E 09:21

== ENCOUNTER 2019-01-26 11:54 | Inpatient (IN) ==
[2019-01-26] MEDS ORDERED: LACTATED RINGER'S 1,000 ML IV SCH (12:30)
[2019-01-26] MEDS ORDERED: PATIENT'S HEIGHT AND/OR WEIGHT NEEDED SCH (12:45)
[2019-01-26] MEDS: CEFAZOLIN 1000MG 1,000 MG/7.5 ML SYR IV SCH ×2 (14:11→18:38)
--- NOTE | 2019-01-26 18:50 | History & Physical Report ---
Date of Service January 26, 2019 Assessment & Plan (1) Cellulitis of left knee: Patient has been started on IV antibiotics, Ancef, which we will increase to 2000 mg every 8 hours. I do not believe the infections in the joint as the patient is nontender and without discomfort through range of motion and ambulation. Continue IV antibiotics for now to see how he responds. History of Present Illness Primary Care Provider: Zach Bridges MD Patient is 68-year-old white male known to our practice and is status post left total knee arthroplasty on 01/16/19. Patient states that he has been in his normal state of health and has been progressing well with his physical therapy and his new left total knee arthroplasty. Over the last 24 to 48 hours the patient states that he began developing some erythema around his incision. At one point yesterday he was rubbing his incision and felt that it was moist in that area. He noticed that he had increasing erythema and a little bit of clear fluid oozing from the skin itself but not the incision. He's been having some burning pain around the incision and on the knee where there was erythema. He came in to see Dr. Victoria today in the office. Dr. Victoria examined him and felt he had a cellulitis of the left knee. The patient states that he is been able to ambulate without difficulty. No increased pain with range of motion or weightbearing. He denies any fevers or chills in the recent past up until this time. He denies nausea or vomiting. He is now here to be treated for his cellulitis. Allergies Allergy/AdvReac Type Severity Reaction Status Date / Time No Known Drug Allergies Allergy Unknown . Verified 01/16/19 05:45 Home Medications Home Medications Medication Instructions Recorded Confirmed Type fluticasone propionate 1 spray INTRANASAL QAM 12/08/18 01/19/19 History levothyroxine 50 mcg PO QAM 12/08/18 01/26/19 History loratadine 10 mg PO QAM 12/08/18 01/19/19 History losartan 25 mg PO QAM 12/08/18 01/26/19 History ranitidine HCl 150 mg PO 12/08/18 01/26/19 History diclofenac 1 % topical gel 1 % TOPICAL DAILY PRN gm 12/18/18 01/19/19 History fluocinonide 0.05 % topical cream 1 applic TOPICAL DAILY PRN #1 gm 12/18/18 01/19/19 History hydrochlorothiazide 12.5 mg capsule 12.5 mg PO DAILY 12/20/18 01/26/19 History simvastatin 20 mg tablet 20 mg PO PM #30 tab 01/01/19 01/26/19 Rx multivitamin 1 tab PO DAILY 01/16/19 01/19/19 History acetaminophen [Tylenol Extra 1,000 mg PO Q8 14 Days #84 tab 01/18/19 01/26/19 Rx Strength] aspirin [Ecotrin Low Strength] 81 mg PO BID 30 Days #60 tab 01/18/19 01/26/19 Rx cefadroxil 500 mg PO BID 10 Days #20 cap 01/18/19 01/26/19 Rx celecoxib [Celebrex] 200 mg PO BID 30 Days #60 cap 01/18/19 01/26/19 Rx docusate sodium 100 mg PO BID 10 Days #20 cap 01/18/19 01/26/19 Rx oxycodone 5 mg PO Q4H PRN #30 tab 01/18/19 01/19/19 Rx Past Med/Surg History Medical History Diverticulosis of colon (Acute) History of esophageal reflux (Resolved) Hyperlipidemia (Acute) Hypothyroidism (Acute) Pre-diabetes (Acute) Diplopia left eye Environmental allergies Osteoarthritis Surgical History Status post total knee replacement, left History of mandibular surgery History of total right knee replacement Hx of thumb surgery LEFT Family History Mother No problems noted. Father No problems noted. Social History Preferred Language: Bengali Communication Ability: Effective Tow Operator Required: No Beliefs That Will Affect Care: None marital status: Current Living Situation: Spouse Other Information That Helps Us Care for You: No Feels Safe at Home: Yes Safety Concerns: Feels Safe At This Time Smoking Status: Never smoker Do You Dip or Chew Tobacco: No Second Hand Exposure: No Tobacco Cessation Education Requested by Patient: No Hx Alcohol Use: No Hx Substance Use: No Review of Systems Review of Systems: All systems reviewed & are unremarkable except as noted in HPI & below Physical Exam Eyes: PERRL, conjunctivae normal, anicteric sclerae ENMT: external ear and nose normal, oropharynx normal Neck: normal visual inspection Respiratory: normal respiratory effort, lungs clear to auscultation Cardiovascular: Rate/Rhythm: regular rate and regular rhythm Gastrointestinal (Abdomen): normal bowel sounds, soft, nontender, no hepatosplenomegaly Musculoskeletal: On examination of his left lower extremity, he has a dressing over his knee which is removed. Prineo mesh dressing is noted over the incision. Currently he has his knee flexed to 90 degrees without discomfort. He has moderate erythema that travels proximally above the knee and below the knee and is almost completely circumferential although is much less noticeable on the posterior aspect of the knee. Swelling noted as well which is causing some slight oozing from the skin itself. There is no foul odor. The incision is well approximated and has no drainage noted. Calves are soft ,nontender. He does have some lower extremity edema bilaterally of which he states is normal for him at this point in time. He has good range of motion of the left knee without pain. Currently range of motion appears to be around 5- 100 degrees. He has no pain with weightbearing on the left lower extremity. Right lower extremity is benign at this time and has a well-healed incision from previous right TKA and good range of motion throughout. Distal pulses are equal bilaterally of the lower extremities as well as upper extremities. Strengths are equal bilaterally. Upper extremities are unaffected and are nontender at the shoulders ,elbows ,and wrists. Range of motion is within normal limits. There is no gross motor or sensory loss seen at this time. Neurologic: CN's II-XI intact bilaterally Results & Data Vital Signs (Past 12 Hours) Vital Signs Temp Pulse Resp BP Pulse Ox 01/26/19 15:19 36.5 C 85 16 149/80 H 97 01/26/19 12:32 36.6 C 97 H 18 144/83 H 96
[2019-01-26] MEDS: SODIUM CHLORIDE 0.9% 1000ML 1,000 ML IV SCH (19:16)
[2019-01-26] MEDS: SIMVASTATIN 20 MG TAB PO SCH (21:11)
[2019-01-26] MEDS: ASPIRIN 81 MG ECTAB PO SCH (21:11)
[2019-01-26] MEDS: DOCUSATE SODIUM 100 MG CAP PO SCH (21:11)
[2019-01-27] MEDS: CEFAZOLIN 2000MG 2,000 MG/15 ML SYR IV SCH ×3 (01:56→17:03)
[2019-01-27] MEDS: LEVOTHYROXINE SODIUM 50 MCG TABLET PO SCH (05:51)
[2019-01-27 07:01] LABS: Creatinine Clr Calc Pharmacy 114.8 ml/min; Est GFR (African American) 102.1; Est GFR (Non-African American) 88.1
--- NOTE | 2019-01-27 07:11 | Orthopedic Progress Note ---
Date of Service January 27, 2019 Assessment & Plan (1) Cellulitis of left knee: HD 1 cellulitis left knee status post left TKA. Patient looks overall improved today. Continue IV antibiotics at this point in time. Continue DVT prophylaxis with aspirin twice daily, SCDs and TODD hose. Pain continues to remain controlled and he has not had to use narcotics regularly. Subjective Patient is hospital day 1 for cellulitis of the left knee status post left TKA Patient is currently lying in bed awake and alert and oriented. He has no complaints this morning. He states that the knee feels better overall since yesterday. He continues to have no pain in the left knee with ambulation and/or range of motion when he is up and about in the hallways. No new complaints. Denies shortness of breath, chest pain, lightheadedness. Physical Exam Physical Exam: Left knee is overall looking better. His erythema that I noted yesterday, is much less today. He still has some darkened erythema around the wound itself but is overall improved. Incision continues to remain intact and no drainage. He continues to have some serous drainage from the swollen tissue around his incision. No foul odor. Calves are soft nontender. Neurovascular intact. Results & Data Vital Signs (Past 12 Hours) Vital Signs Temp Pulse Resp BP Pulse Ox 01/26/19 23:59 36.8 C 84 16 151/80 H 98
[2019-01-27 07:31] LABS: Basophils # (auto) 0.01 K/uL (0-0.2); Basophils % (auto) 0.1 %; Eosinophils # (auto) 0.54 K/uL (0-0.5); Eosinophils % (auto) 7.6 %; Hematocrit (blood only) 36.3 % (42-52); Hemoglobin 12.3 g/dL (14.0-18.0); Immature Granulocytes # (auto) 0.02 K/uL (0.00-0.02); Immature Granulocytes % (auto) 0.3 %; Lymphocytes # (auto) 1.26 K/uL (1.2-3.4); Lymphocytes % (auto) 17.8 %; Mean Corpuscular Hgb Conc 33.9 g/dL (32-36); Mean Corpuscular Volume 85.4 fL (80-100); Mean Platelet Volume 9.9 fL (7.4-10.4); Monocytes # (auto) 0.59 K/uL (0.11-0.59); Monocytes % (auto) 8.3 %; Neutrophils # (auto) 4.67 K/uL (1.4-6.5); Neutrophils % (auto) 65.9 %; Platelet Count 275 K/uL (130-400); RDW Coefficient of Variation 13.8 % (11.5-14.5); RDW Standard Deviation 42.4 fL (36.4-46.3); Red Blood Count 4.25 M/uL (4.7-6.1); White Blood Count 7.09 K/uL (4.8-10.8)
[2019-01-27 07:58] LABS: BUN Creatinine Ratio 17.2 (10-20); Calcium 8.6 mg/dl (8.5-10.1); Creatinine Clr Calc Pharmacy 107.6 ml/min; Est GFR (African American) 94.4; Est GFR (Non-African American) 81.5; Potassium 3.6 mmol/L (3.5-5.1)
[2019-01-27] MEDS: LORATADINE 10 MG TAB PO SCH (08:41)
[2019-01-27] MEDS: DOCUSATE SODIUM 100 MG CAP PO SCH ×2 (08:41→20:43)
[2019-01-27] MEDS: ASPIRIN 81 MG ECTAB PO SCH ×2 (08:41→20:43)
[2019-01-27] MEDS: SODIUM CHLORIDE 0.9% 1000ML 1,000 ML IV SCH ×2 (08:41→20:53)
[2019-01-27] MEDS: LOSARTAN POTASSIUM 25 MG TAB PO SCH (08:41)
[2019-01-27] MEDS: SIMVASTATIN 20 MG TAB PO SCH (20:43)
[2019-01-28] MEDS: CEFAZOLIN 2000MG 2,000 MG/15 ML SYR IV SCH (01:38)
[2019-01-28] MEDS: OXYCODONE/ACETAMINOPHEN 5mg/325mg TAB PO PRN ×3 (03:09→22:45)
[2019-01-28] MEDS: LEVOTHYROXINE SODIUM 50 MCG TABLET PO SCH (05:23)
[2019-01-28 06:19] LABS: Creatinine Clr Calc Pharmacy 117.4 ml/min; Est GFR (Non-African American) 88.9
[2019-01-28] MEDS ORDERED: VANCOMYCIN CONSULT ACTIVE PRN (08:16)
--- NOTE | 2019-01-28 08:23 | Orthopedic Progress Note ---
Date of Service January 28, 2019 Assessment & Plan (1) Cellulitis of left knee: HD 2 cellulitis left knee status post left TKA. No overall improvement at this time. With development of blisters on the medial aspect. I discussed the case with Dr. Victoria this morning and plans will be to change him to vancomycin and stop the cefazolin. Possibility of an ID consult after the patient is been seen by Dr. Victoria this morning who is coming in to see him. Continue DVT prophylaxis with aspirin twice daily, SCDs and TODD hose. Pain control is adequate. Overall the patient has slept a little better but still has several periods at night that he is not sleeping. We will add Ambien p.o. nightly as needed. Repeat CBC and sed rate have been ordered. Subjective Hospital day 2 cellulitis left knee. Patient is lying in bed and awake and alert. He states he had a decent night and was able to get a little bit more sleep overnight. He has no new complaints. Pain is controlled and states that overall the knee has been feeling okay. He does get sharp pains off and on it certain points in time in the proximal portion of the incision but is off and on and not very frequent. He denies shortness of breath, chest pain, lightheadedness. Physical Exam Physical Exam: No overall improvement today noted in the erythema. He has also developed some skin blisters on the medial aspect of the knee. Part of a blister at the proximal portion incision has been deroofed and has a scant amount of blood noted. There is no purulence noted. He continues to have some scant serous drainage from the skin itself but nothing from the wound. The wound remains intact with no openings noted and no drainage. Calves are soft and nontender. Neurovascular is intact. Results & Data Vital Signs (Past 12 Hours) Vital Signs Temp Pulse Resp BP Pulse Ox 01/28/19 07:11 36.5 C 71 17 132/83 98 01/27/19 23:00 36.8 C 89 16 153/82 H 99
[2019-01-28] MEDS ORDERED: VANCOMYCIN HCL 1,000 MG in SODIUM CHLORIDE 0.9% 250 ML IV SCH (08:30)
[2019-01-28] MEDS: LORATADINE 10 MG TAB PO SCH (08:50)
[2019-01-28] MEDS: DOCUSATE SODIUM 100 MG CAP PO SCH ×2 (08:50→21:39)
[2019-01-28] MEDS: LOSARTAN POTASSIUM 25 MG TAB PO SCH (08:51)
[2019-01-28] MEDS: ASPIRIN 81 MG ECTAB PO SCH ×2 (08:51→21:40)
[2019-01-28] MEDS: SODIUM CHLORIDE 0.9% 1000ML 1,000 ML IV SCH (08:56)
[2019-01-28 09:03] LABS: Basophils # (auto) 0.02 K/uL (0-0.2); Basophils % (auto) 0.2 %; Eosinophils # (auto) 0.68 K/uL (0-0.5); Hematocrit (blood only) 35.3 % (42-52); Immature Granulocytes # (auto) 0.01 K/uL (0.00-0.02); Immature Granulocytes % (auto) 0.1 %; Lymphocytes % (auto) 21.1 %; Mean Corpuscular Volume 87.6 fL (80-100); Mean Platelet Volume 9.9 fL (7.4-10.4); Monocytes # (auto) 0.61 K/uL (0.11-0.59); Monocytes % (auto) 7.2 %; Neutrophils # (auto) 5.41 K/uL (1.4-6.5); Neutrophils % (auto) 63.4 %; Platelet Count 277 K/uL (130-400); RDW Coefficient of Variation 13.8 % (11.5-14.5); RDW Standard Deviation 44.3 fL (36.4-46.3); Red Blood Count 4.03 M/uL (4.7-6.1); White Blood Count 8.53 K/uL (4.8-10.8)
[2019-01-28] MEDS ORDERED: VANCOMYCIN HCL 2,750 MG in SODIUM CHLORIDE 0.9% 500 ML IV ONE (09:30)
--- NOTE | 2019-01-28 09:49 | Pharmacy Report ---
Pharmacy Abx Initial Consult - Date of Service January 28, 2019 - Pharmacy Dosing Scope Date of Consult: 01/28/19 Consultation requested by: Dashawn Chowdary PA-C. Pharmacy is consulted to initiate Vancomycin IV dosing therapy, order appropriate labs and adjust drug dose/frequency. - Subjective The patient is a 68 year old M admitted on 01/26/19 12:15. - Objective Height: 6 ft Weight: 138.346 kg Vital Signs (Past 12hrs): Vital Signs Temp Pulse Resp BP Pulse Ox 01/28/19 07:11 36.5 C 71 17 132/83 98 01/27/19 23:00 36.8 C 89 16 153/82 H 99 Lab Results (24hrs): Laboratory Tests (24 Hours) 01/28/19 01/28/19 05:42 05:39 WBC 8.53 Neut # (Auto) 5.41 Creatinine 0.88 Est Cr Clr Drug Dosing 117.4 - Risk Factors for Resistance * Hospitalization for 48 hours or more within the past 90 days - Assessment & Plan Assessment 68 year old M s/p L TKA (01/16/19). Pt states over last 24-48 hrs has developed erythema with burning sensation around incision. Noted clear fluid draining from skin around incision, but incision itself. No difficulty ambulating/bearing weight. No issues with ROM. Pt WBC is WNL and has been afebrile since admission. Initially treated with Ancef x24 hours with no improvement and development of blisters on medial aspect. Drainage remains clear, no reported purulence. Plan Vancomycin for treatment of SSTI of left knee. Vancomycin IV * Estimated PK Parameters: Vd 0.7 L/kg, Mack 0.1 hr-1, t1/2 7 hr * Loading dose: 2750 mg (19.8 mg/kg) * Maintenance dose: 1750 mg IV (12.6 mg/kg) every 8 hours * Goal trough level : 10 to 15 mcg/mL * Trough/Random level ordered for 01/29/19 before 1800 should be reflective of Css. * A less than traditional dose has been selected due to likelihood of drug accumulation in obese patient (BMI 41.4). Pharmacy will continue to follow and will adjust dose/frequency as necessary. Thank you.
[2019-01-28] MEDS: VANCOMYCIN HCL 1,750 MG in SODIUM CHLORIDE 0.9% 500 ML IV SCH (18:47)
[2019-01-28] MEDS: SIMVASTATIN 20 MG TAB PO SCH (21:40)
[2019-01-29] MEDS: VANCOMYCIN HCL 1,750 MG in SODIUM CHLORIDE 0.9% 500 ML IV SCH ×2 (02:08→10:02)
[2019-01-29] MEDS: SODIUM CHLORIDE 0.9% 1000ML 1,000 ML IV SCH ×2 (02:08→20:56)
[2019-01-29] MEDS: OXYCODONE/ACETAMINOPHEN 5mg/325mg TAB PO PRN ×2 (03:06→23:06)
[2019-01-29 06:22] LABS: Creatinine Clr Calc Pharmacy 124.5 ml/min; Est GFR (African American) 105.5
[2019-01-29] MEDS: LEVOTHYROXINE SODIUM 50 MCG TABLET PO SCH (06:42)
[2019-01-29] MEDS: LORATADINE 10 MG TAB PO SCH (08:30)
[2019-01-29] MEDS: LOSARTAN POTASSIUM 25 MG TAB PO SCH (08:30)
[2019-01-29] MEDS: DOCUSATE SODIUM 100 MG CAP PO SCH ×2 (08:30→20:56)
[2019-01-29] MEDS: ASPIRIN 81 MG ECTAB PO SCH ×2 (08:30→20:57)
--- NOTE | 2019-01-29 15:12 | Progress Note ---
DATE: 01/29/2019 SUBJECTIVE: The patient is awake and alert, lying in bed, conversing with a passenger service representative from [employer]. He has no overt complaints today and states that his pain is controlled and that he has had basically just some burning sensation on top of the skin, but no overt pain in the knee itself. He continues to have no pain with range of motion of the knee, inside the knee and also no pain with weightbearing as tolerated. He denies any shortness of breath, chest pain or lightheadedness. OBJECTIVE: The patient has an Michelet wrap and dressing around the knee at this time. This is left on at this point in time, the wound has been changed up to 2-3 times a day and the patient showed a picture they had taken of the wound approximately 20 minutes prior to my visit. No significant change in the area in question around his knee, but does not look overtly any better that it did yesterday. He continues with multiple small blisters mostly medially to the knee incision. The knee incision itself is benign as far as remaining intact and no drainage coming from the incision itself, continues with some mild drainage from the cellulitic skin. Calves were soft, nontender, neurovascularly intact. Toes were mobile. ASSESSMENT: Cellulitis, left knee versus allergic reaction. PLAN: Continue IV antibiotics. Dr. Ospina has been consulted and will await his input. Wound care has also been consulted to get some ideas for wound care for around the fracture blisters and the wound itself. He can continue on PT and OT protocols and continue on DVT prophylaxis and pain management.
--- NOTE | 2019-01-29 16:23 | Infectious Disease Consult ---
Date of Consultation January 29, 2019 Assessment & Plan (1) Cellulitis of left knee: Patient with cellulitis of the left knee following knee surgery, appears superficial as no pain in the or difficulty moving, but with negative cultures so far. Given patient's size, think the vancomycin dosing may be somewhat problematic. Will change to IV ceftaroline to see if can provide more rapid response. Will follow. History of Present Illness Reason for Consultation: Left knee infection Attending Physician: Jaydon Victoria DO History of Present Illness 68-year-old male with history of hyperlipidemia, prediabetes, hypothyroidism, who is status post left knee replacement January 16, 2019. Did well initially, but then developed drainage from the wound, then increasing redness surrounding the knee extending to his lower leg and thigh. He was seen by Dr. Victoria and referred to the hospital for admission. He was initially treated with cefazolin, but was changed yesterday to vancomycin because of lack of improvement. Slightly better today. He has no difficulty moving his knee, no pain with ambulation. No fever or chills. Cultures have been negative to date. Allergies Allergy/AdvReac Type Severity Reaction Status Date / Time No Known Drug Allergies Allergy Unknown . Verified 01/16/19 05:45 Home Medications Home Medications Medication Instructions Recorded Confirmed Type fluticasone propionate 1 spray INTRANASAL QAM 12/08/18 01/19/19 History levothyroxine 50 mcg PO QAM 12/08/18 01/26/19 History loratadine 10 mg PO QAM 12/08/18 01/19/19 History losartan 25 mg PO QAM 12/08/18 01/26/19 History ranitidine HCl 150 mg PO 12/08/18 01/26/19 History diclofenac 1 % topical gel 1 % TOPICAL DAILY PRN gm 12/18/18 01/19/19 History fluocinonide 0.05 % topical cream 1 applic TOPICAL DAILY PRN #1 gm 12/18/18 01/19/19 History hydrochlorothiazide 12.5 mg capsule 12.5 mg PO DAILY 12/20/18 01/26/19 History simvastatin 20 mg tablet 20 mg PO PM #30 tab 01/01/19 01/26/19 Rx multivitamin 1 tab PO DAILY 01/16/19 01/19/19 History acetaminophen [Tylenol Extra 1,000 mg PO Q8 14 Days #84 tab 01/18/19 01/26/19 Rx Strength] aspirin [Ecotrin Low Strength] 81 mg PO BID 30 Days #60 tab 01/18/19 01/26/19 Rx celecoxib [Celebrex] 200 mg PO BID 30 Days #60 cap 01/18/19 01/26/19 Rx oxycodone 5 mg PO Q4H PRN #30 tab 01/18/19 01/19/19 Rx Patient History Medical History Diverticulosis of colon (Acute) History of esophageal reflux (Resolved) Hyperlipidemia (Acute) Hypothyroidism (Acute) Pre-diabetes (Acute) Diplopia left eye Environmental allergies Osteoarthritis Surgical History Status post total knee replacement, left History of mandibular surgery History of total right knee replacement Hx of thumb surgery LEFT Family History Mother No problems noted. Father No problems noted. Social History Preferred Language: Arabic Communication Ability: Effective Respiratory Care Assistant Required: No Beliefs That Will Affect Care: None marital status: Current Living Situation: Spouse Other Information That Helps Us Care for You: No Feels Safe at Home: Yes Safety Concerns: Feels Safe At This Time Smoking Status: Never smoker Do You Dip or Chew Tobacco: No Second Hand Exposure: No Tobacco Cessation Education Requested by Patient: No Hx Alcohol Use: No Hx Substance Use: No Review of Systems Review of Systems: All systems reviewed & are unremarkable except as noted in HPI & below Physical Exam Constitutional: WD/WN, vitals as above + obese and comfortable; no acute distress Eyes: PERRL, conjunctivae normal, anicteric sclerae ENMT: external ear and nose normal, oropharynx normal Neck: trachea midline, no thyromegaly neck nontender Respiratory: normal respiratory effort, lungs clear to auscultation normal percussion; does not use accessory muscles Cardiovascular: Rate/Rhythm: regular rate and regular rhythm Heart Sounds: normal S1 and normal S2; no gallop, no murmur and no cardiac rub Vessels: normal peripheral pulses; no JVD Gastrointestinal (Abdomen): normal bowel sounds, soft, nontender, no hepatosplenomegaly Musculoskeletal: no cyanosis or clubbing, extremities motor strength 5/5 Spine: thoracic spine normal to inspection and lumbar spine normal to inspection; no cervical spinal tenderness Skin: normal turgor and + wound (Left knee wound with some serous drainage, surrounding area) Neurologic: patellar DTR's 2+ bilat, sensation intact no focal motor deficits Psychiatric: A+Ox3, euthymic affect Orientation: cooperative Lymphatic: no cervical or axillary lymphadenopathy no inguinal lymphadenopathy Results & Data Vital Signs (Past 12 Hours) Vital Signs Temp Pulse Pulse Resp BP BP Pulse Ox 01/29/19 15:19 37.1 C 86 18 147/79 H 98 01/29/19 08:29 82 119/77 01/29/19 07:08 36.4 C L 74 16 131/84 99 Laboratory Results [facility] 01/29/19 05:31 Creatinine 0.83 Diagnostic Findings Microbiology 01/28/19 Unknown Knee,Left Gram Stain - Final 01/28/19 Unknown Knee,Left Wound Culture - Preliminary No growth to date.
[2019-01-29] MEDS ORDERED: VANCOMYCIN TROUGH ONE (17:30)
[2019-01-29] MEDS: CEFTAROLINE FOSAMIL ACETATE 600 MG in SODIUM CHLORIDE 0.9% 250 ML IV SCH (19:37)
[2019-01-29] MEDS: SIMVASTATIN 20 MG TAB PO SCH (20:57)
[2019-01-30] MEDS: OXYCODONE/ACETAMINOPHEN 5mg/325mg TAB PO PRN ×2 (04:00→23:18)
[2019-01-30] MEDS: LEVOTHYROXINE SODIUM 50 MCG TABLET PO SCH (05:59)
[2019-01-30] MEDS: CEFTAROLINE FOSAMIL ACETATE 600 MG in SODIUM CHLORIDE 0.9% 250 ML IV SCH ×2 (07:34→20:26)
[2019-01-30] MEDS: LORATADINE 10 MG TAB PO SCH (08:12)
[2019-01-30] MEDS: DOCUSATE SODIUM 100 MG CAP PO SCH ×2 (08:12→20:27)
[2019-01-30] MEDS: LOSARTAN POTASSIUM 25 MG TAB PO SCH (08:13)
[2019-01-30] MEDS: ASPIRIN 81 MG ECTAB PO SCH ×2 (08:13→20:28)
[2019-01-30] MEDS: SODIUM CHLORIDE 0.9% 1000ML 1,000 ML IV SCH (10:10)
[2019-01-30] MEDS ORDERED: ZOLPIDEM TARTRATE 5 MG TAB PO PRN (12:59)
--- NOTE | 2019-01-30 13:53 | Progress Note ---
DATE: 01/30/2019 SUBJECTIVE: The patient is currently sitting in his chair at the bedside and just finishing his lunch. He has no complaints at this time. Pain is controlled and he states that he feels that his cellulitis of the knee is getting better or at least is improved since yesterday. Dr. Ospina had seen the patient yesterday and switched him to ceftaroline antibiotic and discontinued the vancomycin. Wound care has seen the patient and is now doing dressing changes with Xeroform over the blistering of the skin and just using 4 x 4s instead of ABDs and then a Kerlix wrap at this time. The patient again has no other complaints at this time and denies any shortness of breath, chest pain or lightheadedness. OBJECTIVE: His dressing was taken down and the Xeroform was briefly lifted up to observe the skin. It does look a little better today as far as a little bit less erythema. He continues to have some of the blisters noted that have not broken, but overall does appear to be looking better today. Xeroform was then placed back down and new 4 x 4's were placed and basically covered with a Kerlix wrap at this point. Calves were soft, nontender. It was noted that his knee wound continued to remain benign and is well approximated. Neurovascular was intact. Toes were mobile. ASSESSMENT AND PLAN: Cellulitis, left knee. Plan is to continue the ceftaroline at this point in time. The patient states that Dr. Ospina is giving it possibly another 24 hours and the decision will be made to either send him home on p.o. antibiotics or IV antibiotics. We will defer to Dr. Ospina for that decision. Continue PT, OT protocols and DVT prophylaxis as well as pain management.
[2019-01-30] MEDS: SIMVASTATIN 20 MG TAB PO SCH (20:28)
[2019-01-31] MEDS: OXYCODONE/ACETAMINOPHEN 5mg/325mg TAB PO PRN (03:48)
[2019-01-31] MEDS: LEVOTHYROXINE SODIUM 50 MCG TABLET PO SCH (05:30)
[2019-01-31] MEDS: CEFTAROLINE FOSAMIL ACETATE 600 MG in SODIUM CHLORIDE 0.9% 250 ML IV SCH ×2 (08:26→20:27)
[2019-01-31] MEDS: LORATADINE 10 MG TAB PO SCH (08:31)
[2019-01-31] MEDS: DOCUSATE SODIUM 100 MG CAP PO SCH ×2 (08:31→20:27)
[2019-01-31] MEDS: ASPIRIN 81 MG ECTAB PO SCH ×2 (08:32→20:27)
[2019-01-31] MEDS: LOSARTAN POTASSIUM 25 MG TAB PO SCH (08:32)
--- NOTE | 2019-01-31 14:49 | Orthopedic Progress Note ---
Date of Service January 31, 2019 Assessment & Plan (1) Cellulitis of left knee: Continue IV antibiotics as per Dr. Ospina the ID team. Possibility of switching to orals I will order Benadryl every 6 hours as needed to help with his itching. Continue current DVT prophylaxis and pain management. We will await Dr. Ospina's input. Subjective Patient lying in bed awake and alert and oriented. Family is present. Patient feels that the cellulitis looks a little bit better today and the fact that it is spray drier and not having that serous drainage. Denies shortness of breath, chest pain, lightheadedness. Patient states that he is up and ambulating in the hallways and doing his exercises for his total knee arthroplasty. He has been getting some increased itching off and on of the left lower extremity. Physical Exam Physical Exam: Dressing was removed. Xeroform taken down. Patient does have noticeably less serous drainage from the skin issues. He continues with some mild to moderate erythema and also a noted macular rash that goes down to the ankle and also above the knee along the thigh. The blisters on the medial and lateral aspects of the incision are intact. There is no purulent drainage. Erythema does travel around the knee posteriorly. Calves are soft nontender. Neurovascular intact. Toes are mobile. His wound continues to remain intact with no drainage. Xeroform gauze and dressing reapplied. Results & Data Vital Signs (Past 12 Hours) Vital Signs Temp Pulse Resp BP Pulse Ox 01/31/19 07:53 36.4 C L 78 17 138/88 98
[2019-01-31] MEDS: DiphenhydrAMINE HCL 50 MG/ML VIAL IV PRN (18:04)
[2019-01-31] MEDS: SIMVASTATIN 20 MG TAB PO SCH (20:27)
--- NOTE | 2019-01-31 23:13 | Infectious Disease Progress Nt ---
Date of Service January 31, 2019 Assessment & Plan (1) Cellulitis of left knee: Patient with cellulitis of the left knee following knee surgery, appears superficial as no pain in the or difficulty moving, but with negative cultures so far. Appears to be improving on ceftaroline, hopefully can transition to oral antibiotics tomorrow. Will follow. Subjective Patient lying in bed awake and alert and oriented. Family is present. Patient feels that the cellulitis looks a little bit better today and the fact that it is drier and grinder tender and not having that serous drainage. Denies shortness of breath, chest pain, lightheadedness. Patient states that he is up and ambulating in the hallways and doing his exercises for his total knee arthroplasty. He has been getting some increased itching off and on of the left lower extremity. Review of Systems Review of Systems: All systems reviewed & are unremarkable except as noted in HPI & below Physical Exam Constitutional: WD/WN, vitals as above + obese and comfortable; no acute distress Eyes: PERRL, conjunctivae normal, anicteric sclerae ENMT: external ear and nose normal, oropharynx normal Neck: trachea midline, no thyromegaly neck nontender Respiratory: normal respiratory effort, lungs clear to auscultation normal percussion; does not use accessory muscles Cardiovascular: Rate/Rhythm: regular rate and regular rhythm Heart Sounds: normal S1 and normal S2; no gallop, no murmur and no cardiac rub Vessels: normal peripheral pulses; no JVD Gastrointestinal (Abdomen): normal bowel sounds, soft, nontender, no hepatosplenomegaly Musculoskeletal: no cyanosis or clubbing, extremities motor strength 5/5 Spine: thoracic spine normal to inspection and lumbar spine normal to inspection; no cervical spinal tenderness Skin: normal turgor and + wound (Improvement in erythema) Neurologic: patellar DTR's 2+ bilat, sensation intact no focal motor deficits Psychiatric: A+Ox3, euthymic affect Orientation: cooperative Lymphatic: no cervical or axillary lymphadenopathy no inguinal lymphadenopathy Results & Data Vital Signs (Past 12 Hours) Vital Signs Temp Pulse Resp BP Pulse Ox 01/31/19 15:13 36.5 C 93 H 18 142/83 H 98 Diagnostic Findings Microbiology 01/28/19 Unknown Knee,Left Gram Stain - Final 01/28/19 Unknown Knee,Left Wound Culture - Final No growth
[2019-02-01] MEDS: OXYCODONE/ACETAMINOPHEN 5mg/325mg TAB PO PRN (01:32)
[2019-02-01] MEDS: DiphenhydrAMINE HCL 50 MG/ML VIAL IV PRN (04:12)
[2019-02-01] MEDS: LEVOTHYROXINE SODIUM 50 MCG TABLET PO SCH (06:29)
[2019-02-01] MEDS: CEFTAROLINE FOSAMIL ACETATE 600 MG in SODIUM CHLORIDE 0.9% 250 ML IV SCH (08:03)
[2019-02-01] MEDS: LORATADINE 10 MG TAB PO SCH (08:55)
[2019-02-01] MEDS: LOSARTAN POTASSIUM 25 MG TAB PO SCH (08:56)
[2019-02-01] MEDS: DOCUSATE SODIUM 100 MG CAP PO SCH (08:56)
[2019-02-01] MEDS: ASPIRIN 81 MG ECTAB PO SCH (08:57)
[2019-02-01] MEDS ORDERED: CLINDAMYCIN HCL 150 MG CAP PO SCH (14:00)
--- NOTE | 2019-02-01 15:27 | Progress Note ---
DATE: 02/01/2019 SUBJECTIVE: The patient is hospital day #6 with cellulitis/atopic dermatitis type reaction on his left knee. The patient has no overt complaints this morning, but states that he has been noticing a little bit more itching and also a little bit of redness and itching around his chin area. I was contacted this afternoon by nursing who stated that he has now had a rash on the chest, abdomen and back. The patient was on ceftaroline antibiotic, which was discontinued by Dr. Ospina. When seeing the patient, he had no other complaints other than the itchiness and had noticed some other changes with the rash. He had no complaints with his knee and felt that overall it was looking a little better. No other symptoms at this time. OBJECTIVE: Dressing was removed and wound care was present at the time. Overall, it does look improved as far as blistering and the initial serous drainage from these blisters has calm down quite a bit. He continues to have the rash down the leg and up the leg and goes posteriorly and now up on the thorax. His knee continued to remain nontender with range of motion and with weightbearing. Calves were soft, nontender and neurovascularly intact. Toes were mobile. ASSESSMENT: Cellulitis/atopic dermatitis reaction, left knee. PLAN: Again, Dr. Ospina has discontinued the ceftaroline and is trying to decide what to give him orally as far as antibiotic. We will continue the daily dressing changes using the Xeroform gauze and the 4 x 4's, and Kerlix wrap. We will await to hear Dr. Ospina's recommendations before sending the patient home. Addendum: Contacted by Dr Ospina. Switching pt to Clindamycin po. Plan for 2 weeks PO antibx. [facility]
--- NOTE | 2019-02-05 15:06 | Discharge Summary ---
DISCHARGE DIAGNOSIS: Cellulitis left knee, question atopic dermatitis. SECONDARY DIAGNOSES: History of diverticulosis, GERD, hyperlipidemia, hypothyroidism, prediabetic, diplopia, environmental allergies, osteoarthritis. CONSULTS: Dr. Rodolfo Ospina. COMPLICATIONS: None. PROCEDURES: None. BRIEF HISTORY: As dictated in the history and physical. HOSPITAL SUMMARY: The patient was admitted on the above-noted date with the above-noted cellulitis and was started on initially IV cefazolin. On his first hospital day, he looked overall improved. He was in bed, awake and alert and had no complaints that morning. He stated that he felt better overall since the previous day and he continued to have no pain in the left knee with ambulation and range of motion when he was up and about the hallways. He had no new complaints. No shortness of breath, chest pain or lightheadedness. Left knee was overall looking a little better. His erythema that had I had seen the previous day from admission was much less. He still had some darkened erythema around the wound itself but was overall improved. Incision continued to remain intact. He continued to have some serous drainage from the swollen tissue around his incision. No foul odor. Calves were soft, nontender, neurovascularly intact. Vital signs were stable. He was afebrile. He was continued on his IV antibiotics and was remaining stable. By the second postoperative day, he had no new complaints. Pain was controlled. He was getting some sharp pains off and on around the proximal portion of the incision, but not very frequently. He did not have any overall improvement that day and he also developed some skin blisters on the medial aspect of the knee. Part of a blister had been de-roofed on the proximal portion of the incision and he had a scant amount of blood noted there. There was no purulence and the wound remained intact with no openings and no drainage. He continued to remain afebrile. His white count continued to remain stable on admission and throughout his stay and of note his sed rate was 52 on admission and was 32 by the . A swab was taken from the skin surface drainage and was sent for culture which eventually showed no growth. After discussing the case with Dr. Victoria cefazolin was changed to vancomycin and Dr. Ospina was consulted for ID consult. He saw the patient on the and he ended up changing the vancomycin due to dosing issues and changed it to ceftaroline. Over the course of the next few days the patient improved slowly. I discussed the case with [facility] hospitalist who felt that partially could be due to atopic dermatitis as well. The patient states that he had had an issue with his right knee that was somewhat similar, but much, much less problematic. By 01/31/2019 he was starting to have some itching and was developing a slight rash on the lower extremities. The patient felt that the cellulitis looked a little bit better that day and that the area was much drier belt conveyor and not having the serous drainage that he was having. He had been getting increased itching off and on and he was started on Benadryl to help with the itching. By 02/01/2019 the patient was still remaining stable. He had no overt complaints that morning but was stating that he noticed he was having some increased itching up and around the torso and also around his neck and chin. I had been contacted that afternoon by nursing stated that when he had taken off his shirt he had now had a rash on his chest and his abdomen and back and the ceftaroline antibiotic was discontinued by Dr. Ospina. His dressing was removed. His wound care was present time. Overall, did look improved as far as the blistering and the initial serous drainage of the blisters had calmed down quite a bit. He continued to have the rash down the leg and up the leg and goes posteriorly but now is up on his torso. His knee continued to remain nontender with range of motion and with weightbearing. Calves were soft, nontender, neurovascularly intact. Toes were mobile. The ceftaroline again was noted to be discontinued and plans were to await input from Dr. Ospina for oral antibiotics. Plans were to continue daily dressing changes with Xeroform, 4 x 4's, and Kerlix. I was contacted by Dr. Ospina later in the day and plans were to switch him to clindamycin p.o. for 2 weeks. The patient was otherwise remaining stable and it was felt that he could be discharged to home on 02/01/2019. For further review, please see chart. LABORATORY AND X-RAY DATA: As per chart. DISCHARGE INSTRUCTIONS: The patient was discharged home in satisfactory condition on 02/01/2019. DIET: Regular. ACTIVITY: Weightbearing as tolerated left lower extremity. Resume TKA protocol as before. Gentle range of motion initially. PT 3 times a week or as directed by Dr. Victoria. Follow up with Dr. Victoria in 1 week. Daily dressing changes. Use Xeroform or plain Vaseline gauze covering 4 x 4 gauze and Kerlix wrap. Michelet wrap as needed. If your rash worsens, please call the office. DISCHARGE MEDICATIONS: Clindamycin 300 mg p.o. 8 hours for 2 weeks. Benadryl 50 mg p.o. q. 6 hours, Percocet 1-2 tabs p.o. q. 6 hours p.r.n. Resume home meds as listed. Stop taking previous oxycodone.
== END 2019-02-01 17:18 | disposition home or self-care (01) | DRG 603 ==
LOC: 3E 12:15